=== PATIENT | male | born 1960 | race Caucasian/White ===

== ENCOUNTER → 2019-06-14 | Outpatient (CLI) | payer MEDICARE ==
[2014-10-21 14:43] VITALS: BP 137/90
[~2019-06-14] MED LIST: CEPH-264 PO; DIAZ5TAB PO; GABA-585 PO; IBUP200T44 PO; MELO15TA23 PO; OXYC1TAB15 PO; PANT20TA58 PO; ZOLP10TA PO
--- NOTE | 2019-06-14 11:53 | RAD ---
HIP RIGHT 2 VIEW History: Chronic right hip pain. Technique: 2 views right hip. Comparison: None. Findings: Normal alignment right hip. No fracture. Prominence of the right femoral head/neck junction, can be seen with femoral acetabular impingement morphology. Mild right hip degenerative changes. Impression: 1. Mild right hip DJD. 2. Femoral acetabular impingement morphology. Electronically signed by: Hugo Blanco DO (06/14/2019 11:50 AM) [id number]
== END | disposition home or self-care (01) ==
LOC: DXRAD 11:29
PROVIDERS: ATTEND Family Medicine
DX: M16.11 Unilateral primary osteoarthritis, right hip (principal)
CPT/HCPCS: 73502

== ENCOUNTER → 2019-12-24 | Outpatient (CLI) | payer MEDICARE ==
[2014-10-21 14:43] VITALS: BP 137/90
--- NOTE | 2019-12-24 17:02 | RAD ---
TESTICULAR/SCROTUM History: Draining sore of the right scrotum Comparison: None. Findings: Multiple grayscale, color, and duplex spectral analysis waveform images of the testicles and scrotum are submitted. Right testicle measured 5.3 x 3.5 x 2.6 cm. Left testicle measured 4.7 x 3.5 x 2.1 cm. There is normal low resistance vascularity of interrogated intratesticular vessels bilaterally. No intratesticular mass is demonstrated on either side. There are 3 epididymal cysts, largest up to 1.2 cm. Reportedly located at the posterior aspect of the inferior scrotal sac, there is focus of superficial echogenicity and associated tract of shadowing gas about 1.7 x 2.1 x 0.5 cm in size. Impression: 1. At site of reportedly draining wound of the posterior right scrotal sac, there is focus of nonspecific echogenicity which may be component of skin thickening and phlegmon with tract of gas. 2. There is no intratesticular mass or evidence of testicular torsion. 3. There are 3 right epididymal cysts. Electronically signed by: Todd Ziegler MD (12/24/2019 4:59 PM) [facility]
--- NOTE | 2019-12-25 08:14 | RAD ---
Ultrasound of the right quadrant of the abdomen 12/24/2019 CLINICAL HISTORY: Right-sided abdominal pain and bloating. TECHNIQUE: A real-time ultrasound examination of the right upper quadrant abdomen was performed. Multiple images were obtained. FINDINGS: The gallbladder is well-distended. No gallstones are visualized. The gallbladder wall thickness is within normal limits. No pericholecystic fluid is seen. The common bile duct measures 5 mm in diameter which is within normal limits. The liver is normal in size. It measures 17.0 cm in length. No focal abnormality of the liver is seen. The pancreas is not well-visualized due to overlying bowel gas. The right kidney is within normal limits. No free fluid is seen. IMPRESSION: Negative study. Electronically signed by: Loyd Baez MD (12/25/2019 8:11 AM) [id number]
== END ==
LOC: US 15:17
PROVIDERS: ATTEND Family Medicine
DX: S31.30XA Unspecified open wound of scrotum and testes, initial encounter (principal); K82.8 Other specified diseases of gallbladder; N49.8 Inflammatory disorders of other specified male genital organs; X58.XXXA Exposure to other specified factors, initial encounter; Y93.89 Activity, other specified; Y92.89 Other specified places as the place of occurrence of the external cause; Y99.8 Other external cause status
CPT/HCPCS: 76705; 76870

== ENCOUNTER → 2020-05-01 | Outpatient (CLI) | payer MEDICARE ==
[2014-10-21 14:43] VITALS: BP 137/90
[2020-05-01 16:17] LABS: BASO # 0.1 x10^3/uL (0.0-0.2); BASO % 1 % (0-3); EOS # 0.3 x10^3/uL (0.0-0.7); EOS % 2 % (0-3); HEMATOCRIT 51.3 % (39.0-53.0); HEMOGLOBIN 16.8 g/dL (13.0-17.5); LYMPH % 18 % (24-48); MEAN CORPUSCULAR HEMOGLOBIN 31 pg (25-35); MEAN CORPUSCULAR HGB CONC 33 g/dL (31-37); MEAN CORPUSCULAR VOLUME 94 fL (79-100); MONO # 0.9 x10^3/uL (0.0-1.1); MONO % 6 % (0-9); NEUT # 12.2 x10^3uL (1.8-7.7); NEUT % 74 % (31-73); PLATELET COUNT 288 x10^3/uL (140-400); RED BLOOD COUNT 5.48 x10^6/uL (4.30-5.70); RED CELL DISTRIBUTION WIDTH 13.5 % (11.5-14.5); WHITE BLOOD COUNT 16.6 x10^3/uL (4.0-11.0)
[2020-05-01 16:51] LABS: % EOS 1 % (0-5); % LYMPHS 18 % (24-48); % MONOS 4 % (0-10); % SEGS 77 % (35-66); PLT ESTIMATE ADEQUATE (ADEQUATE)
[2020-05-01 16:56] LABS: ALBUMIN 3.7 g/dL (3.4-5.0); ALBUMIN/GLOBULIN RATIO 0.9 (1.0-1.7); CALCIUM 9.2 mg/dL (8.5-10.1); GFR 76.2; POTASSIUM 4.5 mmol/L (3.5-5.1); TOTAL BILIRUBIN 0.4 mg/dL (0.2-1.0); TOTAL PROTEIN 7.9 g/dL (6.4-8.2)
--- NOTE | 2020-05-01 17:02 | RAD ---
INDICATION : Reason: RUQ PAIN AND MASS / Spl. Instructions: / History: COMPARISON: December 23 TECHNIQUE: Multiple ultrasound images obtained through the abdomen in grayscale and color. FINDINGS: Liver: Echogenic which can be seen with fatty infiltration. Gallbladder: No wall thickening or stones. IVC: Partially distended at level of liver. Common Bile Duct: Not dilated. Pancreas: Largely obscured by bowel gas Right Kidney: No hydronephrosis. IMPRESSION: * No biliary ductal dilation or gallstones. * Liver is echogenic which can be seen with fatty infiltration. * No subcutaneous mass or fluid collection at the area of concern. Electronically signed by: Zheng Aguila MD (05/01/2020 5:00 PM) [id number]
== END ==
LOC: US 15:33
PROVIDERS: ATTEND Family Medicine
DX: R10.11 Right upper quadrant pain (principal); R19.01 Right upper quadrant abdominal swelling, mass and lump; R19.31 Right upper quadrant abdominal rigidity; R07.1 Chest pain on breathing
CPT/HCPCS: 36415; 76705; 80053; 84484; 85007; 85025

== ENCOUNTER → 2020-05-02 | Outpatient (CLI) | payer MEDICARE ==
[2014-10-21 14:43] VITALS: BP 137/90
[~2020-05-02] MED LIST changes: +IOHEXOL 300 MG/ML 75 ML VIAL. IV ONE
--- NOTE | 2020-05-02 15:26 | RAD ---
INDICATION: Reason: RUQ PAIN MASS / Spl. Instructions: / History: . COMPARISON: Ultrasound from one day prior TECHNIQUE: Axial CT images obtained through the abdomen with contrast. One or more of the following individualized dose reduction techniques were utilized for this examinat ion: 1. Automated exposure control; 2. Adjustment of the mA and/or kV according to patient size; 3 . Use of iterative reconstruction technique. FINDINGS: Groundglass nodular opacity at the left lung base. Calcific atherosclerosis of thoracic aorta. Moderate to severe calcific atherosclerosis. No intrahepatic bile duct dilation. No peripancreatic fluid collection. Spleen unremarkable. Mild nodular thickening of the left adrenal gland greater than right. No hydronephrosis. Colonic diverticulosis. No periappendiceal inflammatory changes. Portions of the small bowel are dilated up to about 3 cm without a high-grade transition point. There is also some mild prominence the wall of a portion of the small bowel. Degenerative changes throughout the spine with multilevel central canal and neural foraminal stenosis . Stimulator leads. IMPRESSION: * No definite mass is seen at the right upper quadrant. * Groundglass nodular opacity left lung base. Could be infectious or inflammatory in nature or secon lashonda to a region of atelectasis but would consider obtaining a follow-up in a few months to ensure no increase to exclude a persistent groundglass nodule. This measures up to about 17 mm. * Mild prominence the wall of a small portion of the small bowel. Likely secondary to a region of co ntraction but would correlate with symptoms to ensure there is not a pathologic cause such as enterit is. Electronically signed by: Zheng Aguila MD (05/02/2020 3:23 PM) [id number]
== END ==
LOC: CT 14:06
PROVIDERS: ATTEND Family Medicine
DX: K57.30 Diverticulosis of large intestine without perforation or abscess without bleeding (principal); R19.01 Right upper quadrant abdominal swelling, mass and lump; I70.0 Atherosclerosis of aorta; I25.10 Atherosclerotic heart disease of native coronary artery without angina pectoris
CPT/HCPCS: 74160; Q9967

== ENCOUNTER 2020-06-12 16:18 | Emergency (ER) | payer MEDICARE ==
[~2020-06-12] VITALS: Ht 185.4 cm; Wt 110.0 kg
[~2020-06-12 16:18] MED LIST changes: -IOHEXOL 300 MG/ML 75 ML VIAL. IV ONE
[2020-06-12 16:54] LABS: HEMATOCRIT 51.8 % (39.0-53.0); HEMOGLOBIN 17.3 g/dL (13.0-17.5); MEAN CORPUSCULAR HEMOGLOBIN 31 pg (25-35); MEAN CORPUSCULAR HGB CONC 33 g/dL (31-37); MEAN CORPUSCULAR VOLUME 92 fL (79-100); PLATELET COUNT 285 x10^3/uL (140-400); RED BLOOD COUNT 5.64 x10^6/uL (4.30-5.70); RED CELL DISTRIBUTION WIDTH 13.3 % (11.5-14.5); WHITE BLOOD COUNT 12.5 x10^3/uL (4.0-11.0)
--- NOTE | 2020-06-12 17:04 | RAD ---
CT Head W/O Contrast: History: Confusion Comparison: none Axial images were obtained without contrast. The mtz and white matter appears normal and symmetrical for the patients age. There is no mass effe ct, extraaxial fluid collections or hydrocephalus. There is no gross bleed. There is no focal loss of mtz-white matter distinction to suggest acute ischemia, i.e. stroke. Impression: No acute findings. RS Compliance Statement: One or more of the following individualized dose reduction techniques were utilized for this examinat ion: 1. Automated exposure control 2. Adjustment of the mA and/or kV according to patient size 3. Use of iterative reconstruction technique Electronically signed by: Ruel Banks III, MD (06/12/2020 5:01 PM) [facility]
[2020-06-12 17:08] LABS: CALCIUM 9.8 mg/dL (8.5-10.1); CREATININE 1.1 mg/dL (0.7-1.3); GFR 68.3; POTASSIUM 4.3 mmol/L (3.5-5.1)
[2020-06-12 17:15] LABS: ALBUMIN 4.1 g/dL (3.4-5.0); TOTAL BILIRUBIN 0.6 mg/dL (0.2-1.0); TOTAL PROTEIN 8.1 g/dL (6.4-8.2)
[2020-06-12 17:26] LABS: AMPHETAMINE/METHAMPHETAMINE NEG (NEG); BARBITURATES NEG (NEG); BENZODIAZEPINES POS (NEG); CANNABINOIDS POS (NEG); COCAINE NEG (NEG); METHADONE NEG (NEG); OPIATES NEG (NEG); PHENCYCLIDINE NEG (NEG)
--- NOTE | 2020-06-12 17:43 | PHYS DOC ---
Past History Past Medical History: Other Additional Past Medical Histor: chronic back pain (THOMAS BERNARD MD) Past Surgical History: Other Additional Past Surgical Histo: back surgery, leg surgery, nerve stimulator (THOMAS BERNARD MD) Alcohol Use: Occasionally Drug Use: None (THOMAS BERNARD MD) Adult General Chief Complaint Chief Complaint: ALTERED MENTAL STATUS [facility] HPI Patient is a 59-year-old male who presents to the emergency room with altered mental status and diffuse weakness. states that patient was completely normal yesterday. He was able to work in the yard without any difficulties. He woke up today and since he woke up he has been confused. He has had a hard time remembering anything. He keeps insisting that he has been outside working but his states he has not been outside all day. She states that he has been having shakes and is wobbly on his feet. She states this is happened 3 or 4 times over the last 6 months. They have not noticed any other changes in the last few months that would cause this. She states typically it resolves on its own within a couple of hours. She states this 1 has lasted the longest. Patient states he feels confused and cannot remember what is going on. He states that he thought that today was Easter. He states he was having some chest pain earlier but no longer has any chest pain. (THOMAS BERNARD MD) Review of Systems Review of Systems Complete ROS is negative unless otherwise documented in HPI (THOMAS BERNARD MD) Allergies Allergies Allergies Coded Allergies Type Severity Reaction Last Updated Verified poison modesto extract Allergy Mild 07/04/14 Yes (THOMAS BERNARD MD) Physical Exam Physical Exam General: Awake, alert, NAD. Well Nourished, well hydrated. Cooperative HEENT: Atraumatic, EOMI, PERRL, airway patent, moist oral mucosa Neck: Supple, trachea midline Respiratory: CTA bilaterally, normal effort, no wheezing/crackles CV: RRR, no murmur, cap refill <2 GI: Soft, nondistended, nontender, no masses MSK: No obvious deformities Skin: Warm, dry, intact Neuro: A&O x2, speech NL, sensory and motor grossly intact, diffuse weakness, cranial nerves II through XII intact, confused Psych: Normal affect, normal mood, not suicidal or homicidal (THOMAS BERNARD MD) Current Patient Data Vital Signs Vital Signs Date Time Temp Pulse Resp B/P (MAP) Pulse Ox O2 Delivery O2 Flow Rate FiO2 06/12/20 16:27 97.5 76 20 171/91 (117) 100 Room Air Lab Results Laboratory Tests Test 06/12/20 16:24 06/12/20 16:37 06/12/20 17:03 White Blood Count 12.5 x10^3/uL (4.0-11.0) H Red Blood Count 5.64 x10^6/uL (4.30-5.70) Hemoglobin 17.3 g/dL (13.0-17.5) Hematocrit 51.8 % (39.0-53.0) Mean Corpuscular Volume 92 fL (79-100) Mean Corpuscular Hemoglobin 31 pg (25-35) Mean Corpuscular Hemoglobin Concent 33 g/dL (31-37) Red Cell Distribution Width 13.3 % (11.5-14.5) Platelet Count 285 x10^3/uL (140-400) Platelet Estimate Pending Sodium Level 140 mmol/L (136-145) Potassium Level 4.3 mmol/L (3.5-5.1) Chloride Level 103 mmol/L (98-107) Carbon Dioxide Level 23 mmol/L (21-32) Anion Gap 14 (6-14) Blood Urea Nitrogen 20 mg/dL (8-26) Creatinine 1.1 mg/dL (0.7-1.3) Estimated GFR (Cockcroft-Gault) 68.3 BUN/Creatinine Ratio 18 (6-20) Glucose Level 122 mg/dL (70-99) H Calcium Level 9.8 mg/dL (8.5-10.1) Total Bilirubin 0.6 mg/dL (0.2-1.0) Aspartate Amino Transferase (AST) 28 U/L (15-37) Alanine Aminotransferase (ALT) 49 U/L (16-63) Alkaline Phosphatase 95 U/L (46-116) Creatine Kinase 87 U/L (39-308) Troponin I Quantitative < 0.017 ng/mL (0-0.055) Total Protein 8.1 g/dL (6.4-8.2) Albumin 4.1 g/dL (3.4-5.0) Albumin/Globulin Ratio 1.0 (1.0-1.7) Ethyl Alcohol Level < 10 mg/dL (0-10) Glucose (Fingerstick) 117 mg/dL (70-99) H Urine Opiates Screen Neg (NEG) Urine Methadone Screen Neg (NEG) Urine Barbiturates Neg (NEG) Urine Phencyclidine Screen Neg (NEG) Urine Amphetamine/Methamphetamine Neg (NEG) Urine Benzodiazepines Screen Pos (NEG) Urine Cocaine Screen Neg (NEG) Urine Cannabinoids Screen Pos (NEG) Urine Ethyl Alcohol Neg (NEG) (THOMAS BERNARD MD) EKG EKG [] (THOMAS BERNARD MD) Radiology/Procedures Radiology/Procedures [] (THOMAS BERNARD MD) Radiology/Procedures CTA head with and without and CTA neck with contrast History: Confusion chest pain and weakness and clinical certain for arterial dissection Technique: Axial helical images were obtained of the head and neck after the intravenous administration of 100 mL of Omni 350 IV contrast. Multiplanar reconstruction was performed on an independent work station including MIP imaging and 3D angiographic imaging. Comparison: none CTA head contrast. Findings: Brain: The mtz and white matter appears symmetrical. There is no mass effect, extra-axial fluid collections or hydrocephalus. There is no gross bleed. Distal carotid arteries: normal caliber Vertebral basilar system the right vertebral artery is small compared to the left Major cerebral arteries: normal Impression: no acute findings end impression CTA neck with contrast: Findings: Aortic arch and origin of great vessels: The left common carotid artery arises from a common trunk with the brachiocephalic artery Common carotid arteries: Right: normal Left: normal Internal carotid arteries: Right: normal Left: normal Vertebral basilar system the right vertebral artery is small compared to the left There is mild reversal of the normal cervical lordosis. There is degenerative changes the C-spine with multilevel central and neuroforaminal stenosis. Impression: No significant stenosis. End impression PQRS Compliance Statement - Stenosis calculations for CT, MR and conventional angiography are based upon measurement of the distal ICA diameter in accordance with the NASCET methodology. Stenosis calculations for carotid ultrasound studies are derived from validated velocity criteria which are known to correlate with the NASCET methodology. PQRS Compliance Statement: FINDINGS: CT Chest: Nonaneurysmal thoracic aorta. Trace calcific coronary artery disease. No pathologically enlarged mediastinal or hilar lymph nodes. No pericardial effusion. Emphysema. Mild basilar volume loss. No lobar consolidation, pleural effusion or pneumothorax. Bladder at the lateral aspect of the right lower lobe. No axillary adenopathy. The visualized thyroid is unremarkable. No acute or aggressive osseous process. Spinal cord stimulator terminating at the lower thoracic spine. CT Abdomen/Pelvis: No focal hepatic parenchymal abnormality. Within normal limits gallbladder and biliary tree. No peripancreatic inflammation or ductal dilatation. Within normal limits size of the spleen. Nodular configuration of the adrenal glands unchanged from the 05/02/2020 comparison. Limited assessment for intrarenal stones given excretion of recently adminis tered contrast. No complex cyst or mass is apparent. No hydronephrosis. Mild wall thickening of the urinary bladder in the setting of prostate enlargement which measures 5.4 cm transverse. Several colonic diverticuli without diverticulitis. The bowel mucosa is incompletely evaluated without oral contrast. Unremarkable stomach. Normally located ligament of Treitz. No small bowel obstruction. Normal appendix. Scattered aortic and iliofemoral calcific atherosclerosis. No aneurysmal dilatation. A few mildly prominent upper abdominal lymph nodes such as precaval and francesco hepatis are unchanged. No free fluid or pneumoperitoneum. Degenerative changes of the hips, sacroiliac joints and predominantly lower lumbar spine. Osseous neural foraminal encroachment greatest bilaterally at L5- S1. No evidence for severe central canal stenosis. IMPRESSION: 1. Apparently there is concern for dissection. The study was performed without contrast. Nonaneurysmal aorta. 2. No acute abnormality seen throughout the chest. Emphysema and very mild calcific coronary artery disease. 3. No acute process identified throughout the abdomen or pelvis. 4. Mild urinary bladder wall thickening in the setting of prostatomegaly could represent chronic bladder outlet obstruction. 5. Additional chronic observations as above. Electronically signed by: SEAN ARANGO MD (06/12/2020 7:30 PM) [facility] (MARK COBB MD) Heart Score C/O Chest Pain: N/A Risk Factors: Risk Factors: DM, Current or recent (<one month) smoker, HTN, HLP, family history of CAD, obesity. Risk Scores: Risk Factors: DM, Current or recent (<one month) smoker, HTN, HLP, family history of CAD, obesity. (THOMAS BERNARD MD) Course & Med Decision Making Course & Med Decision Making Pertinent Labs and Imaging studies reviewed. (See chart for details) Patient is a 59-year-old male who presents to the emergency room with altered mental status. Patient does have diffuse weakness. He is denying any kind of pain at this time. He is confused. Altered mental status work-up was ordered including UA, CBC, CMP, CT head, troponin, EKG, chest x-ray. Patient is on multiple medications but his states that there have not been any recent changes. (THOMAS BERNARD MD) Course & Med Decision Making Patient care transferred to wa at checkout. Laboratory analysis not concerning. CTA of the head and neck with CT of the chest abdomen pelvis not concerning. On reassessment of patient, was awake alert and in no acute distress. Patient able to ambulate without issue. Discussed all findings with patient and offered admission to the hospital for further evaluation and treatment possibly neurology consultation and MRI. Patient stated he felt fine and would call his primary care physician, Dr. Quinonez first thing in the morning to set up a follow-up visit as soon as possible. Gave risks of doing this, as if he is having either neurologic or cardiac etiology it could lead to significant morbidity, disability or even . Patient states that he was just a little tired this morning, after taking his Valium and Percocet and is feeling well and ready to go home. (MARK COBB MD) Dragon Disclaimer Dragon Disclaimer This electronic medical record was generated, in whole or in part, using a voice recognition dictation system. (THOMAS BERNARD MD) Departure Departure: Impression: Primary Impression: Altered mental status Disposition: 01 DC HOME SELF CARE/HOMELESS Condition: IMPROVED Referrals: RAJAN ALBERT MD (PCP) Patient Instructions: Confusion Additional Instructions: Please read all the attached information. Please take all your medications as prescribed only. You are brought in today due to concern by your for confusion. You felt it was due to possibly just waking up, taken your Valium and Percocet. He states that as of right now you feel very well and are ready to be discharged home and felt safe to do so. You were offered admission for observation, further evaluation and treatment including a possible neurology consult and MRI. You stated you felt fine and will call your primary care physician Dr. Quinonez first thing in the morning to set up a follow-up appointment. We discussed the risks of this including worsening illness, disability and in worse case scenario . I advised to call your primary care physician first thing in the morning to discuss your ED visit and set up a follow-up as soon as possible. Please come back to the emergency department immediately with any new or concerning symptoms as discussed. THOMAS BERNARD MD Jun 12, 2020 17:43 MARK COBB MD Jun 12, 2020 20:08
[2020-06-12 17:52] LABS: BACTERIA,URINE 0 /HPF (0-FEW); BILIRUBIN,URINE SMALL (NEG); CLARITY,URINE CLEAR; COLOR,URINE YELLOW; GLUCOSE,URINE NEG (NEG); NITRITE,URINE NEG (NEG); RBC,URINE 0 /HPF (0-2); SQUAMOUS EPITHELIAL CELL,UR OCC /LPF
[2020-06-12 18:04] LABS: % LYMPHS 16 % (24-48); % MONOS 4 % (0-10); % SEGS 78 % (35-66)
[2020-06-12 18:05] LABS: % ATYL 2 % (0-0)
[2020-06-12 18:06] LABS: PLT ESTIMATE ADEQUATE (ADEQUATE)
--- NOTE | 2020-06-12 18:15 | RAD ---
XR CHEST 1V Clinical History: Reason: ALTERED MENTAL STATUS, FEVER / Spl. Instructions: / History: Technique: AP view of the chest was obtained at 06/12/2020 5:50 PM. Comparison: None. Findings: The cardiomediastinal silhouette is normal. The pulmonary vasculature is normal. The lungs and pleura l margins are clear. Impression: No evidence of an acute cardiopulmonary process. Electronically signed by: Ruel Banks III, MD (06/12/2020 6:13 PM) [facility]
[2020-06-12] MEDS ORDERED: IOHEXOL 350 MG/ML 100 ML VIAL. IV ONE ×2 (18:30→18:45)
[2020-06-12] MEDS ORDERED: CONTRAST GIVEN. MC PRN (18:30)
--- NOTE | 2020-06-12 19:18 | RAD ---
CTA head with and without and CTA neck with contrast History: Confusion chest pain and weakness and clinical certain for arterial dissection Technique: Axial helical images were obtained of the head and neck after the intravenous administrati on of 100 mL of Omni 350 IV contrast. Multiplanar reconstruction was performed on an independent wor k station including MIP imaging and 3D angiographic imaging. Comparison: none CTA head contrast. Findings: Brain: The mtz and white matter appears symmetrical. There is no mass effect, extra-axial fluid co llections or hydrocephalus. There is no gross bleed. Distal carotid arteries: normal caliber Vertebral basilar system the right vertebral artery is small compared to the left Major cerebral arteries: normal Impression: no acute findings end impression CTA neck with contrast: Findings: Aortic arch and origin of great vessels: The left common carotid artery arises from a common trunk wi th the brachiocephalic artery Common carotid arteries: Right: normal Left: normal Internal carotid arteries: Right: normal Left: normal Vertebral basilar system the right vertebral artery is small compared to the left There is mild reversal of the normal cervical lordosis. There is degenerative changes the C-spine wit h multilevel central and neuroforaminal stenosis. Impression: No significant stenosis. End impression PQRS Compliance Statement - Stenosis calculations for CT, MR and conventional angiography are based u brent measurement of the distal ICA diameter in accordance with the NASCET methodology. Stenosis calcu lations for carotid ultrasound studies are derived from validated velocity criteria which are known t o correlate with the NASCET methodology. PQRS Compliance Statement: One or more of the following individualized dose reduction techniques were utilized for this examinat ion: 1. Automated exposure control 2. Adjustment of the mA and/or kV according to patient size 3. Use of iterative reconstruction technique Electronically signed by: uRel Banks III, MD (06/12/2020 7:16 PM) [facility]
--- NOTE | 2020-06-12 19:32 | RAD ---
Study: CT chest, abdomen and pelvis without contrast INDICATION: Confusion. Chest pain and weakness. COMPARISON: CT abdomen 05/02/2020 TECHNIQUE: Helical CT imaging performed of the chest, abdomen and pelvis performed without the use of intravenous contrast. Coronal and sagittal reformats were obtained. One or more of the following individualized dose reduction techniques were utilized for this examinat ion: 1. Automated exposure control 2. Adjustment of the mA and/or kV according to patient size 3. Use of iterative reconstruction technique. FINDINGS: CT Chest: Nonaneurysmal thoracic aorta. Trace calcific coronary artery disease. No pathologically enlarged mediastinal or hilar lymph nodes. No pericardial effusion. Emphysema. Mild basilar volume loss. No lobar consolidation, pleural effusion or pneumothorax. Bladde r at the lateral aspect of the right lower lobe. No axillary adenopathy. The visualized thyroid is unremarkable. No acute or aggressive osseous process. Spinal cord stimulator terminating at the lower thoracic spin e. CT Abdomen/Pelvis: No focal hepatic parenchymal abnormality. Within normal limits gallbladder and biliary tree. No perip ancreatic inflammation or ductal dilatation. Within normal limits size of the spleen. Nodular configu ration of the adrenal glands unchanged from the 05/02/2020 comparison. Limited assessment for intrarenal stones given excretion of recently administered contrast. No comple x cyst or mass is apparent. No hydronephrosis. Mild wall thickening of the urinary bladder in the set ting of prostate enlargement which measures 5.4 cm transverse. Several colonic diverticuli without diverticulitis. The bowel mucosa is incompletely evaluated withou t oral contrast. Unremarkable stomach. Normally located ligament of Treitz. No small bowel obstructio n. Normal appendix. Scattered aortic and iliofemoral calcific atherosclerosis. No aneurysmal dilatation. A few mildly pro minent upper abdominal lymph nodes such as precaval and francesco hepatis are unchanged. No free fluid or pneumoperitoneum. Degenerative changes of the hips, sacroiliac joints and predominantly lower lumbar spine. Osseous richmond ral foraminal encroachment greatest bilaterally at L5-S1. No evidence for severe central canal stenos is. IMPRESSION: 1. Apparently there is concern for dissection. The study was performed without contrast. Nonaneurysma l aorta. 2. No acute abnormality seen throughout the chest. Emphysema and very mild calcific coronary artery d isease. 3. No acute process identified throughout the abdomen or pelvis. 4. Mild urinary bladder wall thickening in the setting of prostatomegaly could represent chronic blad renetta outlet obstruction. 5. Additional chronic observations as above. Electronically signed by: SEAN ARANGO MD (06/12/2020 7:30 PM) [facility]
[2020-06-12 20:11] VITALS: BP 151/84
--- NOTE | 2020-06-13 06:42 | EKG ---
[address] [address] Test Date: 2020-06-12 Test Time: 16:26:36 Pat Name: PAT GREENWOOD Department: Room: Gender: M [employer]: ANITA : 1960 Requested By: THOMAS BERNARD Order Number: [id number] Reading MD: Measurements Intervals [place] Rate: 69 P: 42 UT: 184 QRS: -13 QRSD: 90 T: 31 QT: 378 QTc: 406 Interpretive Statements SINUS RHYTHM LEFTWARD AXIS NO SPECIFIC ECG ABNORMALITIES RI6.02 No previous ECG available for comparison
== END 2020-06-12 20:36 | disposition home or self-care (01) ==
LOC: ER 16:18
DX: R41.82 Altered mental status, unspecified (principal); R53.1 Weakness; G89.29 Other chronic pain; Z88.8 Allergy status to other drugs, medicaments and biological substances
CPT/HCPCS: 36415; 70450; 70496; 70498; 71045; 71250; 74176; 80053; 80307; 81001; 82550; 82947; 84443; 84484; 85007; 85025; 93005; 99285; G0480; Q9967